=== PATIENT | female | born 1965 | race Caucasian/White ===

== ENCOUNTER 2016-09-17 15:16 | Emergency (ER) | payer MEDICAID ==
[2016-09-17 17:33] VITALS: BP 116/74
== END 2016-09-17 17:33 | disposition home or self-care (01) ==
LOC: ED 15:16
DX: F32.9 Major depressive disorder, single episode, unspecified (principal); F10.20 Alcohol dependence, uncomplicated
CPT/HCPCS: Q0162

== ENCOUNTER 2018-05-01 02:22 | Emergency (ER) | payer MEDICAID ==
[~2018-05-01] VITALS: Ht 165.1 cm; Wt 72.1 kg
[2018-05-01 02:27] VITALS: Ht 165.1 cm; Wt 72.1 kg
[2018-05-01 03:29] VITALS: BP 113/63
== END 2018-05-01 03:29 | disposition home or self-care (01) ==
LOC: ED 02:22
DX: K08.89 Other specified disorders of teeth and supporting structures (principal); F32.9 Major depressive disorder, single episode, unspecified; F41.9 Anxiety disorder, unspecified; F43.10 Post-traumatic stress disorder, unspecified; F10.10 Alcohol abuse, uncomplicated; Z98.890 Other specified postprocedural states
CPT/HCPCS: J3010; Q0162

== ENCOUNTER 2018-05-28 01:07 | Emergency (ER) | payer MEDICAID ==
[~2018-05-28] VITALS: Ht 165.1 cm; Wt 71.2 kg
[2018-05-28 01:09] VITALS: Ht 165.1 cm; Wt 71.2 kg
[2018-05-28 02:30] LABS: BASOPHIL % 0.7 % (0-2); PLATELET COUNT 159 x10^3mcL (130-400)
[2018-05-28 02:34] LABS: CHLORIDE SERUM 108 mmol/L (98-107); CREATININE SERUM 0.6 mg/dL (0.6-1.0); GFR1 > 60 mL/min; GLUCOSE SERUM 107 mg/dL (74-106); POTASSIUM SERUM 3.9 mmol/L (3.5-5.1); SODIUM SERUM 147 mmol/L (136-145)
[2018-05-28 02:38] LABS: RED CELL DISTRIBUTION WIDTH 15.4 % (11.5-14.5)
[2018-05-28 02:41] LABS: ALBUMIN 3.9 g/dL (3.4-5.0); ALKALINE PHOSPHATASE 55 U/L (46-116); ALT/SGPT 55 U/L (14-59); AST/SGOT 49 U/L (15-37); BILIRUBIN TOTAL 0.29 mg/dL (0.20-1.00); TOTAL PROTEIN, SERUM 7.6 g/dL (6.4-8.2)
[2018-05-28 03:09] VITALS: BP 101/62
[2018-05-28 03:18] LABS: FREE T4 0.99 ng/dL (0.76-1.46); FREE THYROXINE INDEX 2.3 ug/dL (1.4-4.5); T4(THYROXINE) 7.2 ug/dL (4.7-13.3)
[2018-05-28 03:46] LABS: T3 TOTAL 1.45 ng/mL
== END 2018-05-28 03:44 | disposition home or self-care (01) ==
LOC: ED 01:07
PROVIDERS: Emergency Medicine
DX: R07.89 Other chest pain (principal); R06.02 Shortness of breath; Z98.890 Other specified postprocedural states
CPT/HCPCS: 84439; J1885; Q0092

== ENCOUNTER 2018-11-26 19:01 | Emergency (ER) | payer OTHER ==
[~2018-11-26] VITALS: Ht 165.1 cm; Wt 65.8 kg
[2018-11-26 19:12] VITALS: Ht 165.1 cm; Wt 65.8 kg
[2018-11-26 20:35] VITALS: BP 147/61
== END 2018-11-26 20:35 | disposition other institution (70) ==
LOC: ED 19:01
DX: Z02.89 Encounter for other administrative examinations (principal)
CPT/HCPCS: Q0092

== ENCOUNTER 2018-11-26 19:01 | Emergency (ER) | payer OTHER | END 2018-11-26 20:35 | disposition other institution (70) | LOC: ED 19:01 | DX: Z02.89 Encounter for other administrative examinations (principal) ==